=== PATIENT | female | born 1980 | race Caucasian/White ===

== ENCOUNTER 2020-05-03 22:40 | Emergency (ER) | payer OTHER ==
[~2020-05-03] VITALS: Ht 175.3 cm; Wt 95.3 kg
[2020-05-03 22:46] VITALS: Ht 175.3 cm; Wt 95.3 kg
[2020-05-04 00:40] VITALS: BP 111/69
== END 2020-05-04 00:40 | disposition home or self-care (01) ==
LOC: ED 22:40
DX: S16.1XXA Strain of muscle, fascia and tendon at neck level, initial encounter (principal); M19.90 Unspecified osteoarthritis, unspecified site; X58.XXXA Exposure to other specified factors, initial encounter; Y93.89 Activity, other specified; Y92.89 Other specified places as the place of occurrence of the external cause; Y99.8 Other external cause status
CPT/HCPCS: J1885